=== PATIENT | male | born 1965 | race Caucasian/White ===

== ENCOUNTER 2017-05-19 18:11 | Emergency (ER) | payer OTHER ==
[~2017-05-19] VITALS: Ht 177.8 cm; Wt 88.5 kg
[2017-05-19] MEDS ORDERED: LIALDA1.2 GM PO (18:30)
[2017-05-19] MEDS ORDERED: TAMSULOSIN HCL0.4 MG PO (18:32)
[2017-05-19] MEDS ORDERED: BUDESONIDE3 MG PO (18:33)
--- NOTE | 2017-05-19 19:06 | [facility] Report ---
History of Present Issue Date/Time Seen by Provider 05/19/17 1850 Visit Reason Pt arrived:Walked Presenting Problem:PT STATES HE HAS BEEN EXPOSED TO THE FLU. TODAY STARTED WITH SCRATCHY THROAT AND BODY ACHES. Location if Accident: Onset of symptoms date/time:/ or onset unknown for:MEDICAL HX UNKNOWN Have you (or family members/close friends) recently traveled outside the [place]? N If Yes, where/when: Have you had exposure to infectious disease within the past month? TB? Other? Specify: here w/ c/o "I think I am getting the flu". Started this morning w/ scratchy throat. As day progressed, throat more sore and bodyaching. Since being in clinic, rhinorrhea starting. Hasn't taken or tried anything. Exposed to the flu by several different co-workers over the last 1-2 weeks. works here at [employer] and reporting "if her is here, he has to be sick. He doesn't come for just anything." Source patient, family Exam Limitations no limitations ALLERGIES Coded Allergies: Penicillins (Intermediate, 05/19/17) Home Medications Reported Medications Mesalamine (Lialda) 1.2 GM PO DAILY #60 TAMSULOSIN HCL (Tamsulosin HCl) 0.4 MG PO DAILY #30 Budesonide (Budesonide EC) 3 MG PO DAILY #90 History Medical History General CAD? No Angina: No [place]: No Hypertension? No Hyperlipidemia? No CHF? No DVT? No PE? No COPD? No Asthma? No GERD? No Gastric ulcers? No GI Bleed? No Hernia? No Thyroid Problems? No Hypothyroidism? No CVA? No Seizures? No Diabetes? No Renal Insuffiency? No UTI? No Stones? No BPH? No GB Disease: No Asplenia? No Hepatitis? No Sickle Cell Disease? No Arthritis? No Migraines? No Cataracts? No Glaucoma? No MRSA? No HIV? No TB? No Anxiety? No Depression? No Cancer? No Site: N More? Yes Additional hx: UC Immunization HX DT/Tetanus 5-10 Years Ago Surgical Hx Previous Surgery?N Social History Smoking Hx Smoker: Current Every Day Smoker Tobacco: Yes Type Chew Alcohol Alcohol: No Review of Systems All Other Systems Reviewed and Negative Constitutional see HPI, denies fever Eyes denies drainage ENT see HPI. denies: ear pain, nose congestion, throat swelling. Respiratory denies cough, denies shortness of breath Cardiovascular denies chest pain Gastrointestinal denies abdominal pain, denies diarrhea, denies vomiting Musculoskeletal see HPI Skin denies rash Psychiatric/Neurological denies headache Physical Exam Vital Signs Vital Signs Date Time Temp Pulse Resp B/P Pulse O2 O2 Flow FiO2 Ox Delivery Rate 05/19 1828 98.0 71 20 148/91 96 General Appearance no apparent distress, appears to not feel well, quiet Eye Exam - bilateral eye normal exam Ear, Nose, Throat normal ENT inspection (x/ mild pharyngeal erythema) Respiratory Status No: respiratory distress, productive cough, non productive cough. Lung Sounds anterior: lungs clear. posterior: lungs clear. bilateral: lungs clear. Cardiovascular regular rate/rhythm, no peripheral edema, no murmur Neurologic alert, oriented x 3 Mental status normal mood/affect Skin normal color, warm/dry Lymphatic emily tonsillar lymphadenopathy, 1-2cm, soft, mobile, tender Medical Decision Making LABS/Meds/Orders Pt receiving controlled substance in ED? No Results/Orders Laboratory Tests 05/19/171902: Group A Strep Screen NOT DETECTED 05/19/171827: Influenza Type A Ag NOT DETECTED, Influenza Type B Ag NOT DETECTED Orders Procedure Date/time Status [facility] STREP SCREEN 05/19 1903 Complete UTC FLU A,B 05/19 1828 Complete Departure Departure Time of Disposition 1919 Disposition DC Home or Self Care(routine) Clinical Impression Primary Impression: Flu-like symptoms Secondary Impressions: Exposure to the flu Condition STABLE Referrals NO REFERRAL Follow up with primary care IMMEDIATELY for new or worsening symptoms OR no noticeable improvement over the next 48-72 hours. 911 for difficulty breathing Patient Instructions DI for Influenza -- Adult Additional Instructions * Start Tamiflu if you are going to take it. Discussed risks and possible benefits. * Lots of rest * Increase fluids, water, gatorade, powerade, pedialyte if infant/toddler/child * Monitor Temp. Tylenol every 4 hours as needed no more then 5 times a day or 4000mg in 24 hours and/or ibuprofen every 6 hours as needed no more then 3200mg in 24 hours (as long as your primary care doctor has told you that it is ok to take both) for fever/aches/pain. ER if fever no less than 101 despite tylenol and Ibuprofen * You (or your child) are contagious until no fever, aches, chills x 24 hours without medication for symptoms. * * Your throat swab was sent for culture. Those results are typically sent to your primary care. Be sure to follow up in 2-3 days if no improvement so they can review those results and treat if necessary. If you don't have primary care, I recommend you get one but in the mean time, you will have to return to a walk in clinic. Discharge Counseling Counseled pt/family regarding diagnosis, test results, medications/RX, home care, follow up needs Prescriptions Current Visit Scripts Oseltamivir Phosphate (Tamiflu 75MG Capsule) 75 MG PO BID #10 CAP at 9287
[2017-05-19] MEDS ORDERED: TAMIFLU 75MG CA75 MG PO (19:22)
[2017-05-19 19:24] VITALS: BP 144/83
== END 2017-05-19 19:24 | disposition home or self-care (01) ==
LOC: UTC 18:11
DX: J11.1 Influenza due to unidentified influenza virus with other respiratory manifestations (principal); Z20.828 Contact with and (suspected) exposure to other viral communicable diseases